=== PATIENT | male | born 1930 | race Caucasian/White ===

== ENCOUNTER 2020-12-10 08:06 | Day surgery (SDC) | payer OTHER ==
[2020-12-08 11:12] LABS: BASOPHILS % (AUTO) 0.7 % (0.0-5.0); EOSINOPHILS % (AUTO) 2.7 % (0.0-8.0); HEMATOCRIT 45.2 % (42-54); MEAN CORPUSCULAR HEMOGLOBIN 32.4 pg (27.0-33.0); MEAN CORPUSCULAR HGB CONC 33.6 g/dL (32.0-36.0); MEAN CORPUSCULAR VOLUME 96.4 fL (79-99); PLATELET COUNT (AUTO) 149 K/uL (130-400); RED BLOOD CELL COUNT(AUTO) 4.69 MIL/uL (4.50-6.20); RED CELL DISTRIBUTION WIDTH 13.3 % (11.0-15.5); WHITE BLOOD COUNT (AUTO) 6.7 K/uL (4.8-10.8)
[2020-12-08 11:18] LABS: CREATININE 1.5 mg/dL (0.5-1.5); POTASSIUM 4.4 mmol/L (3.5-5.1)
[2020-12-08 11:38] LABS: INR 1.01 (0.85-1.15)
[2020-12-08 11:39] LABS: PARTIAL THROMBOPLASTIN TIME 25.6 SEC (26.3-35.5)
[2020-12-08 14:37] VITALS: BP 147/84
[2020-12-09 15:43] VITALS: BP 147/84
[~2020-12-10] VITALS: Ht 180.3 cm; Wt 108.4 kg
[2020-12-10] VITALS (11 sets, daily range): BP systolic 94–151; BP diastolic 42–78
[~2020-12-10 08:06] MED LIST: 0.9%NACL 1000ML 1,000 ML IV SCH; AEC81 PO; ATOR10 PO; FURO20TA6 PO; IBUP-2076 PO; METO100T14 PO; MIRT-72 PO; OLME20TA22 PO; SENNA PO
[2020-12-10] MEDS ORDERED: BUPIVACAINE/PF 0.25% 30ML VIAL IJ ONE (09:22)
[2020-12-10] MEDS ORDERED: LIDOCAINE HCL 1% MDV 50ML VIAL ONE (09:22)
[2020-12-10] MEDS ORDERED: CEFAZOLIN SODIUM 1 GM VIAL ONE (09:22)
[2020-12-10] MEDS ORDERED: IODIXANOL 320 MG/ML 100 ML VIAL ONE (09:52)
[2020-12-10] MEDS ORDERED: MIDAZOLAM HCL 1 MG/ML 2ML VIAL ONE ×2 (10:02→10:41)
[2020-12-10] MEDS ORDERED: MEPERIDINE-PF 25 MG/ML SYG ONE ×2 (10:02→10:41)
[2020-12-10] MEDS ORDERED: ACETAMINOPHEN 325 MG TAB PO PRN ×2 (12:00)
[2020-12-10] MEDS ORDERED: CEFAZOLIN SODIUM 1 GM VIAL IVP PRN (17:00)
== END 2020-12-10 17:20 | disposition home or self-care (01) ==
LOC: DAH 08:06
PROVIDERS: ATTEND Internal Medicine Cardiovascular Disease
DX: I25.5 Ischemic cardiomyopathy (principal); I44.2 Atrioventricular block, complete; I49.5 Sick sinus syndrome; I44.7 Left bundle-branch block, unspecified; I25.10 Atherosclerotic heart disease of native coronary artery without angina pectoris; Z79.899 Other long term (current) drug therapy; Z79.01 Long term (current) use of anticoagulants
CPT/HCPCS: 33225; 33229; 36415; 71045; 80048; 85025; 85610; 85730; 93005; A4215; A4216; A4221; A4222; A4223 ×2; A4606; A4663; C1769 ×2; C1894; C1900; C2621; J0690; J2175 ×2; J2250 ×2; J3490 ×2; J7030; Q9967; 99156; 99157